=== PATIENT | male | born 1935 | race Caucasian/White ===

== ENCOUNTER → 2022-01-14 | Outpatient (CLI) | payer OTHER ==
[~2022-01-14] MED LIST: DOXA1TAB49 PO; LOSA50TA28 PO; MULT1TAB8 PO; VITA-243 PO
== END ==
LOC: M PLARAD 07:46
PROVIDERS: ATTEND Nurse Practitioner
DX: C61 Malignant neoplasm of prostate (principal)
CPT/HCPCS: 78815; A9552

== ENCOUNTER → 2024-02-16 | Outpatient (CLI) | payer OTHER ==
[~2024-02-16] MED LIST changes: +FURO20TA2; +PANT40TA29; +ZYTI250T PO
== END ==
LOC: M ONCR 16:04
PROVIDERS: ATTEND General Practice
DX: C61 Malignant neoplasm of prostate (principal); C79.51 Secondary malignant neoplasm of bone; M54.50 Low back pain, unspecified; R97.21 Rising PSA following treatment for malignant neoplasm of prostate; Z79.818 Long term (current) use of other agents affecting estrogen receptors and estrogen levels; Z79.899 Other long term (current) drug therapy

== ENCOUNTER 2024-03-05 12:36 | Outpatient (RCR) | payer OTHER | END 2024-03-10 | LOC: M ONCR 12:36 | PROVIDERS: ATTEND General Practice | DX: Z51.0 Encounter for antineoplastic radiation therapy (principal); C79.51 Secondary malignant neoplasm of bone ==

== ENCOUNTER 2024-03-19 15:17 | Outpatient (RCR) | payer OTHER ==
[2024-03-23] MEDS ORDERED: PRED5TA (10:56)
[2024-04-02] MEDS ORDERED: XTAN40CA PO (12:05)
[2024-04-05] MEDS ORDERED: DEXA4TA PO (09:05)
[2024-04-05] MEDS ORDERED: ONDA-84 PO (09:06)
== END 2024-04-10 ==
LOC: M ONCR 15:17
PROVIDERS: ATTEND General Practice
DX: Z51.0 Encounter for antineoplastic radiation therapy (principal); C79.51 Secondary malignant neoplasm of bone

== ENCOUNTER → 2024-05-03 | Outpatient (CLI) | payer OTHER ==
[~2024-05-03] MED LIST changes: +DEXA4TA PO; +ISOVUE-370 76% 100ML VIAL As Ordered ONE; +ONDA-84 PO; +PRED5TA; +XTAN40CA PO
== END ==
LOC: M RAD 12:56
PROVIDERS: ATTEND Internal Medicine Hematology & Oncology
DX: C61 Malignant neoplasm of prostate (principal); N32.3 Diverticulum of bladder; I70.0 Atherosclerosis of aorta; I71.43 Infrarenal abdominal aortic aneurysm, without rupture; C79.51 Secondary malignant neoplasm of bone; K86.89 Other specified diseases of pancreas; J98.11 Atelectasis; I51.7 Cardiomegaly; I25.10 Atherosclerotic heart disease of native coronary artery without angina pectoris
CPT/HCPCS: 71260; 74177; Q9967

== ENCOUNTER → 2024-05-17 | Outpatient (CLI) | payer OTHER ==
[~2024-05-17] MED LIST changes: -ISOVUE-370 76% 100ML VIAL As Ordered ONE
== END ==
LOC: M RAD 10:03
PROVIDERS: ATTEND Internal Medicine Hematology & Oncology
DX: C61 Malignant neoplasm of prostate (principal)
CPT/HCPCS: 78306; A9503